=== PATIENT | male | born 1950 | race Caucasian/White ===

== ENCOUNTER 2019-01-13 15:01 | Emergency (ER) | payer MEDICARE ==
[2019-01-13] MEDS ORDERED: Adacel (T-DAP) 0.5 ML SYRINGE ONE (15:21)
[2019-01-13] MEDS ORDERED: Lidocaine 2% PF 5 ML VIAL ONE ×2 (15:26→16:33)
--- NOTE | 2019-01-13 16:23 | RAD ---
LEFT INDEX FINGER 01/13/19 Laceration of the distal portion of the finger is seen. There is a fracture through the terminal tuft of the distal phalanx with slight displacement. Some soft tissue air is seen in some of the more pro ximal portions of the finger as well. There probably was old trauma and arthritic change to the first carpometacarpal joint. IMPRESSION: Slightly displaced fracture of the distal phalanx of the index finger. POS: HOME
[2019-01-13] MEDS ORDERED: Cephalexin 500 MG CAP ONE (16:54)
[2019-01-13] MEDS ORDERED: Bacitracin Zinc 1 Packet ONE (16:57)
== END 2019-01-13 17:05 | disposition home or self-care (01) ==
LOC: BURERS 15:01
DX: S61.311A Laceration without foreign body of left index finger with damage to nail, initial encounter (principal); E78.5 Hyperlipidemia, unspecified; I10 Essential (primary) hypertension; F17.290 Nicotine dependence, other tobacco product, uncomplicated; F17.210 Nicotine dependence, cigarettes, uncomplicated; Z79.899 Other long term (current) drug therapy; W31.2XXA Contact with powered woodworking and forming machines, initial encounter
CPT/HCPCS: 12001; 90471; 90715; J2001